=== PATIENT | male | born 1995 | race Caucasian/White ===

== ENCOUNTER 2017-10-25 10:27 | Emergency (ER) | payer BC, OTHER ==
[2017-10-25 10:31] VITALS: RESP 18
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
[2017-10-25 11:53] VITALS: BP 141/79; PULSE 79; TEMP 98.2; O2SAT 93
== END 2017-10-25 11:52 | disposition home or self-care (01) ==
PROC: 0HQFXZZ Repair Right Hand Skin, External Approach (ICD-10-PCS; principal; 2017-10-25)
DX: S61.411A Laceration without foreign body of right hand, initial encounter (principal); W25.XXXA Contact with sharp glass, initial encounter